=== PATIENT | male | born 1995 | race Caucasian/White ===

== ENCOUNTER 2023-05-02 12:12 | Emergency (ER) | payer OTHER, SELFPAY ==
[2023-05-02 13:24] LABS: #Eosinphils 0.2 10x3/uL (0.0-0.5); #Monocytes 1.2 10x3/uL (0.0-1.1); #Neutrophils 12.9 10x3/uL (1.5-8.4); %Basophils 0.2 % (0.0-2.0); %Eosinophils 1.2 % (0.0-6.0); %Lymphocytes 8.2 % (18.0-47.0); %Monocytes 7.6 % (0.0-10.0); %Neutrophils 82.5 % (40.0-75.0); Hematocrit 43.8 % (38.8-50.0); Hemoglobin 14.7 g/dL (13.5-17.5); Mean Corpuscular HGB CONC 33.6 g/dL (32.0-36.0); Mean Corpuscular Hemoglobin 27.7 pg (27.0-33.0); Mean Corpuscular Volume 82.6 fl (81.2-95.1); Mean Platelet Volume 9.5 fl (7.4-10.4); Platelet Count 366 10x3/uL (150-450); RBC Distribution Width 14.1 % (11.5-14.5); White Blood Cell (WBC) Count 15.6 10x3/uL (3.5-10.5)
[2023-05-02 13:39] LABS: ALT (SGPT) 29 U/L (8-55); AST (SGOT) 20 U/L (5-34); Albumin 4.7 g/dL (3.5-5.0); Alkaline Phosphatase 70 U/L (40-110); Anion Gap 18 mmol/L (10-20); BUN (Urea Nitrogen) 8 mg/dL (8.9-20.6); Bilirubin, Total 0.6 mg/dL (0.2-1.2); CK (CPK) 76 U/L (30-200); Calc. Creatinine Clearance 0 mL/min (70-130); Carbon Dioxide 17 mmol/L (22-29); Chloride 102 mmol/L (98-107); Estimated GFR 122; Globulin 3.4 g/dL (2.4-3.5); Glucose 138 mg/dL (70-105); Potassium 2.9 mmol/L (3.5-5.1); Protein, Total 8.1 g/dL (6.0-8.3); Sodium 134 mmol/L (136-145)
[2023-05-02] MEDS ORDERED: Potassium Bicarbonate/Cit Ac 25 MEQ TAB ONE (14:01)
[2023-05-02 15:33] LABS: Bilirubin Neg (Negative); Blood, Urine 25 (Negative); Clarity Clear (Clear); Glucose, Urine (Dipstick) Normal (Negative); Ketone, Urine 50 mg/dL (Negative); Leukocyte 25 (Negative); Nitrite Negative (Negative); Protein, Urine (Dipstick) 30 mg/dl (Neg-Trace); Urobilinogen Normal mg/dL (Less than 2)
[2023-05-02 15:40] LABS: Bacteria/HPF Rare-Few HPF (None Seen); CAUTI Indications for Culture Pelvic or flank pain; Squamous Epithelial 0-3 HPF (0-3); WBC/HPF 0-3 HPF (0-3)
[2023-05-02 15:41] LABS: Mucous/LPF 2+ LPF (<2+)
[2023-05-02 15:42] LABS: Urine Culture Reflex No No
== END 2023-05-02 16:35 | disposition home or self-care (01) ==
LOC: CSHERS 12:12
DX: A08.4 Viral intestinal infection, unspecified (principal); E86.0 Dehydration; R31.29 Other microscopic hematuria; R05.9 Cough, unspecified
CPT/HCPCS: 71045; 76705; 80053; 81001; 82550; 83605; 83735; 85025